=== PATIENT | male | born 2005 | race Caucasian/White ===

== ENCOUNTER 2024-08-14 21:27 | Emergency (ER) | payer OTHER ==
[2024-08-14] MEDS ORDERED: Lidocaine 1% 10 ML MDV INJECT ONE (21:58)
== END 2024-08-14 22:50 | disposition home or self-care (01) ==
LOC: JD.ED 21:27
DX: S61.012A Laceration without foreign body of left thumb without damage to nail, initial encounter (principal); Z91.018 Allergy to other foods; Z91.048 Other nonmedicinal substance allergy status; Z91.013 Allergy to seafood; W25.XXXA Contact with sharp glass, initial encounter; Y93.89 Activity, other specified
CPT/HCPCS: 12001; 99282